=== PATIENT | female | born 1945 | race Caucasian/White ===

== ENCOUNTER 2018-12-10 09:12 | Inpatient (IN) | payer MEDICAID ==
[2018-12-10] VITALS (36 sets, daily range): BP systolic 60–137; BP diastolic 16–76
[~2018-12-10] VITALS: Ht 162.6 cm; Wt 51.8 kg
[~2018-12-10 09:12] MED LIST: ALBU2.5V13 NEB; ASCO500C6 PO; ASPI-1393 PO; CARV6.2548 PO; GABA-529 PO; HYDR-4133 PO; LIP40 PO; LOSA1TAB34 PO; MEMA10TA2 PO; NEPVIT PO; PIOG15TA6 PO; TRAM50TA3 PO; TRAZ-251 PO
[2018-12-10] MEDS ORDERED: ASPIRIN 81MG TABLET PO ONE (09:45)
[2018-12-10] MEDS ORDERED: NITROGLYCERIN 0.4MG TABLET SL SL PRN (09:45)
[2018-12-10 09:49] LABS: HEMATOCRIT. 41.8 % (36.0-48.0); HEMOGLOBIN. 13.9 g/dL (12.0-16.0); MEAN CORPUSCULAR HEMOGLOBIN 34.6 pg (28.0-32.0); MEAN CORPUSCULAR VOLUME 104.2 fL (81.0-99.0); MEAN PLATELET VOLUME 9.3 fl (7.4-10.4); PLATELET 99 x1000/uL (130-400); RED BLOOD CELL COUNT 4.02 mill/uL (4.2-5.4); RED CELL DISTRIBUTION WIDTH 14.5 % (11.6-14.6)
[2018-12-10 09:58] LABS: CHLORIDE 99 mEq/L (98-107)
[2018-12-10 10:10] LABS: PLATELET ESTIMATE DECREASED
[2018-12-10] MEDS ORDERED: ONDANSETRON HCL 4MG/2ML INJ IV ONE (10:45)
[2018-12-10] MEDS ORDERED: MORPHINE SULFATE 4 MG/ML CPJ (NOT FOR IM USE) IV ONE (10:45)
[2018-12-10] MEDS ORDERED: ONDANSETRON HCL 4MG/2ML INJ IV PRN (11:30)
[2018-12-10] MEDS ORDERED: ACETAMINOPHEN 325MG TABLET PO PRN (11:30)
[2018-12-10] MEDS ORDERED: IPRATROPIUM/ALBUTEROL 0.5-3(2.5)MG/3ML NEB HHN PRN (11:30)
[2018-12-10] MEDS ORDERED: SODIUM CHLORIDE 0.9% 250 ML IV ONE (13:35)
[2018-12-10] MEDS ORDERED: SODIUM CHLORIDE 0.9% 250 ML IV NR ×2 (13:45→14:00)
[2018-12-10] MEDS ORDERED: AZITHROMYCIN 500 MG in DEXT 5% WATER 250 ML IV SCH (14:00)
[2018-12-10] MEDS ORDERED: LIDOCAINE HCL 1% 20ML VIAL (Pyxis) INJ ONE (14:21)
[2018-12-10] MEDS ORDERED: SODIUM BICARBONATE 4% (2.4MEQ) 5ML VIAL IV ONE (14:21)
[2018-12-10] MEDS ORDERED: PHENYLEPHRINE 40 MG in DEXT 5% WATER 246 ML IV PRN (14:25)
[2018-12-10] MEDS ORDERED: CEFTRIAXONE 1,000 MG in DEXTROSE 5% WATER 50 ML IV SCH (15:00)
[2018-12-10] MEDS ORDERED: SODIUM CHLORIDE 10% FOR INH 15ML VIAL NEB INH SCH (15:30)
[2018-12-10] MEDS: IPRATROPIUM/ALBUTEROL 0.5-3(2.5)MG/3ML NEB HHN SCH ×2 (15:45→20:11)
[2018-12-10] MEDS: NOREPINEPHRINE 16 MG in DEXT 5% WATER 234 ML IV PRN (16:07)
[2018-12-10] MEDS: DEXTROSE 50% WATER 50ML SYRINGE IV PRN (16:21)
[2018-12-10] MEDS: MIDODRINE HCL 5MG TABLET PO SCH ×2 (17:00→18:25)
[2018-12-10] MEDS: BLOOD SUGAR DIAGNOSTIC STRIP TEST SCH (21:50)
[2018-12-11] VITALS (39 sets, daily range): BP systolic 52–158; BP diastolic 18–114
[2018-12-11] MEDS: IPRATROPIUM/ALBUTEROL 0.5-3(2.5)MG/3ML NEB HHN SCH ×3 (00:25→07:36)
[2018-12-11] MEDS: NOREPINEPHRINE 16 MG in DEXT 5% WATER 234 ML IV PRN (01:09)
[2018-12-11] MEDS: DEXTROSE 50% WATER 50ML SYRINGE IV PRN ×2 (01:39→05:16)
[2018-12-11 07:01] LABS: HEMATOCRIT. 37.7 % (36.0-48.0); HEMOGLOBIN. 11.9 g/dL (12.0-16.0); MEAN CORPUSCULAR HEMOGLOBIN 34.8 pg (28.0-32.0); MEAN CORPUSCULAR VOLUME 109.8 fL (81.0-99.0); MEAN PLATELET VOLUME 10.7 fl (7.4-10.4); PLATELET 67 x1000/uL (130-400); RED BLOOD CELL COUNT 3.43 mill/uL (4.2-5.4); RED CELL DISTRIBUTION WIDTH 15.7 % (11.6-14.6)
[2018-12-11 07:53] LABS: PLATELET ESTIMATE DECREASED
[2018-12-11] MEDS: BLOOD SUGAR DIAGNOSTIC STRIP TEST SCH (07:53)
[2018-12-11] MEDS ORDERED: DEXTROSE 5% WATER 1,000 ML IV SCH (08:30)
[2018-12-11] MEDS ORDERED: LORAZEPAM 2MG/ML CPJ IV PRN (09:30)
[2018-12-11] MEDS ORDERED: HALOPERIDOL LACTATE 5MG/ML VIAL IM PRN (09:30)
[2018-12-11] MEDS ORDERED: LEVOFLOXACIN 500MG PREMIX 100 ML IV SCH (09:30)
[2018-12-11] MEDS ORDERED: MORPHINE SULFATE 2 MG/ML CPJ (NOT FOR IM USE) IV PRN (09:30)
[2018-12-11] MEDS ORDERED: LEVOFLOXACIN 500MG PREMIX 100 ML IV NR (11:00)
[2018-12-11] MEDS ORDERED: METRONIDAZOLE 500 MG PREMIX 100 ML IV SCH (13:00)
[2018-12-11] MEDS ORDERED: VANCOMYCIN 1250MG in DEXTROSE 5% WATER 250ML IV NR (14:00)
[2018-12-12] MEDS ORDERED: LEVOFLOXACIN 250MG PREMIX 50 ML IV SCH (11:00)
[2018-12-12] MEDS ORDERED: VANCOMYCIN 750 MG PREMIX 150 ML IV SCH (14:00)
== END 2018-12-11 10:24 | disposition expired | DRG 720 ==
LOC: ER 09:12 → 7WST 11:12 → EDBEDREQ 11:15 → EDBEDREQTM 11:15 → ENRESERV 12:03 → CVICU 14:26
PROVIDERS: ADMIT Internal Medicine; ATTEND Internal Medicine
PROC: 05HY33Z Insertion of Infusion Device into Upper Vein, Percutaneous Approach (ICD-10-PCS; 2018-12-10)
PROC: B54MZZZ Ultrasonography of Right Upper Extremity Veins (ICD-10-PCS; 2018-12-10)
PROC: 5A1D70Z Performance of Urinary Filtration, Intermittent, Less than 6 Hours Per Day (ICD-10-PCS; principal; 2018-12-11)
DX: A41.9 Sepsis, unspecified organism (principal); J96.00 Acute respiratory failure, unspecified whether with hypoxia or hypercapnia; R65.21 Severe sepsis with septic shock; I13.2 Hypertensive heart and chronic kidney disease with heart failure and with stage 5 chronic kidney disease, or end stage renal disease; A04.72 Enterocolitis due to Clostridium difficile, not specified as recurrent; J18.9 Pneumonia, unspecified organism; E11.22 Type 2 diabetes mellitus with diabetic chronic kidney disease; I50.9 Heart failure, unspecified; E87.2 Acidosis; F03.90 Unspecified dementia, unspecified severity, without behavioral disturbance, psychotic disturbance, mood disturbance, and anxiety; E87.1 Hypo-osmolality and hyponatremia; Z96.659 Presence of unspecified artificial knee joint; N18.6 End stage renal disease; Z66 Do not resuscitate; Z86.73 Personal history of transient ischemic attack (TIA), and cerebral infarction without residual deficits; Z86.74 Personal history of sudden cardiac arrest; Z99.2 Dependence on renal dialysis; Z79.899 Other long term (current) drug therapy; Z79.82 Long term (current) use of aspirin
CPT/HCPCS: 36415; 71045; 74018; 76937; 80048; 82962; 83880; 84484; 87015; 87045; 87070; 87427; 87449; 87493; 87804; 89055; 93005; 93970; 94640; 96365; 99285; C1725; J0456; J0696; J1956; J3370; J3490; J7060; J7131; J7620